=== PATIENT | female | born 1930 | race Caucasian/White ===

== ENCOUNTER 2016-10-18 00:36 | Inpatient (IN) | payer OTHER ==
[2016-10-18] VITALS (26 sets, daily range): BP systolic 91–144; BP diastolic 48–95; PULSE 72–96; TEMP 36.5–37; O2SAT 95–100; Ht 157.5 cm; Wt 74.3 kg
[~2016-10-18] VITALS: Ht 157.5 cm; Wt 74.3 kg
[~2016-10-18 00:36] MED LIST: ACET-1311 PO; CALCTAB65 PO; FSMD/70 PO; FURO-85 PO; HYDR12.56 PO; LISI10TA PO; MELA3TAB PO; METO25TA56 PO; POTA10CA28 PO; TRAM-10 PO; WARF5TAB90 PO
--- NOTE | 2016-10-18 01:15 | EMERGENCY ROOM VISIT NOTE ---
History Report prepared by Nicolasibrowena: Sharif Hicks Under the Supervision of: Dr. Irina Acosta D.O. First contact with patient: 00:57 Chief Complaint: FALL Stated Complaint: FALL/SHORT OF BREATH/LEG PAIN History of Present Illness The patient is an 86 year old female who presents to the Emergency Room with complaints of an acute fall that occurred last night. As per daughter, the patient fell out of her bed. She did not sustain any injuries from the fall to her daughter's knowledge. The patient has had worsening generalized weakness for the past week to the point that she has needed a walker. The patient's daughter noticed yesterday that her right leg is hard and swollen. The patient has a history of knee surgery. The patient has been sleeping more than usual. Per daughter's translation, the patient denies any pain. The patient ate multiple meals today. Source of History: patient, family (daughter) Onset: last night Position: other (global) Quality: other (fall) Timing: other (acute) Review of Systems See HPI for pertinent positives & negatives. A total of 10 systems reviewed and were otherwise negative. Past Medical & Surgical Medical Problems: (1) Anemia (2) Anticoagulated by anticoagulation treatment (3) Fibrillation, atrial (4) Hypertension Surgical Problems: (1) Total knee replacement status Family History Patient reports no known family medical history. Social History Smoking Status: Never Smoker Drug Use: none Marital Status: Housing Status: lives with family Occupation Status: retired Current/Historical Medications Scheduled Furosemide (Lasix), 20 MG PO DAILY Lisinopril (Lisinopril), 20 MG PO DAILY Metoprolol Succ (Toprol Xl) (Toprol-Xl), 12.5 MG PO DAILY Potassium Chloride (Klor-Con Sprinkle), 10 MEQ PO DAILY Warfarin Sodium (Coumadin), 1 TAB PO 4XWK Warfarin Sodium (Coumadin), 2 TABS PO 3XWK Allergies Coded Allergies: No Known Allergies (Verified , 10/18/16) Physical Exam Vital Signs Date Time Temp Pulse Resp B/P Pulse Ox O2 Delivery O2 Flow Rate FiO2 10/18/16 02:57 87 18 98/51 100 Room Air 10/18/16 00:54 94 10/18/16 00:51 36.7 99 18 102/55 98 Room Air Physical Exam General: Appears extremely lethargic. HEENT: Head - normocephalic and atraumatic Pupils are equal, round, and reactive to light. Extraocular eye muscles are intact, and sclera are anicteric. Nose - moist nasal mucosa without discharge. Mouth - moist buccal mucosa. Oropharynx is nonerythematous and there is no tonsillar exudate or edema noted. Neck: Supple; no JVD, nuchal rigidity, cervical lymphadenopathy, or auscultated bruits. Heart: Regular rate and rhythm. There is a normal S1 and S2 with no murmurs, clicks, or gallops appreciated. Lungs: Clear to auscultation bilaterally with no wheezes, rales, or rhonchi. Abdomen: Soft, completely nontender, nondistended, with good bowel sounds. There are no palpable pulsatile masses or hepatosplenomegaly. There is no guarding, rigidity, or rebound noted. Extremities:Significant edema of the right leg. Popliteal fossa seems tender to palpation. There is moderate edema and possible hematoma noted at the proximal thigh and about the buttocks. Skin: warm and dry with good turgor and no rashes. Neuro: Moves all four extremities, appears nonfocal. Will eventually follow commands. Medical Decision & Procedures ER Provider Diagnostic Interpretation: Radiology results as stated below per my review and the radiologist's interpretation: US VENOUS RIGHT LOWER EXTREMITY: No sonographic evidence of DVT. Radiologist: Jairo Claire MD. CT HEAD: No intracranial hemorrhage or mass effect. Chronic appearing/senescent changes. Radiologist: Jairo Claire MD. CT scan of the abdomen/pelvis: Pending Laboratory Results 10/18/16 01:28 Red Blood Count 2.08, Mean Corpuscular Volume 66.8, Mean Corpuscular Hemoglobin 21.6, Mean Corpuscular Hemoglobin Concent 32.4, Mean Platelet Volume 7.7, Neutrophils (%) (Auto) 83.2, Lymphocytes (%) (Auto) 4.5, Monocytes (%) (Auto) 9.6, Eosinophils (%) (Auto) 1.9, Basophils (%) (Auto) 0.4, Neutrophils # (Auto) 8.72, Lymphocytes # (Auto) 0.47, Monocytes # (Auto) 1.01, Eosinophils # (Auto) 0.20, Basophils # (Auto) 0.04 Test 10/18/16 01:28 White Blood Count 10.48 K/uL (4.8-10.8) Red Blood Count 2.08 M/uL (4.2-5.4) Hemoglobin 4.5 g/dL (12.0-16.0) Hematocrit 13.9 % (37-47) Mean Corpuscular Volume 66.8 fL (80-100) Mean Corpuscular Hemoglobin 21.6 pg (25-34) Mean Corpuscular Hemoglobin Concent 32.4 g/dl (32-36) Platelet Count 267 K/uL (130-400) Mean Platelet Volume 7.7 fL (7.4-10.4) Neutrophils (%) (Auto) 83.2 % Lymphocytes (%) (Auto) 4.5 % Monocytes (%) (Auto) 9.6 % Eosinophils (%) (Auto) 1.9 % Basophils (%) (Auto) 0.4 % Neutrophils # (Auto) 8.72 K/uL (1.4-6.5) Lymphocytes # (Auto) 0.47 K/uL (1.2-3.4) Monocytes # (Auto) 1.01 K/uL (0.11-0.59) Eosinophils # (Auto) 0.20 K/uL (0-0.5) Basophils # (Auto) 0.04 K/uL (0-0.2) RDW Standard Deviation 47.8 fL (36.4-46.3) RDW Coefficient of Variation 19.7 % (11.5-14.5) Immature Granulocyte % (Auto) 0.4 % Immature Granulocyte # (Auto) 0.04 K/uL (0.00-0.02) Nucleated RBC Absolute Count (auto) 0.02 K/uL (0-0) Nucleated Red Blood Cells % 0.2 % Polychromasia 1+ Microcytosis PRESENT Tear Drop Cells 1+ Ovalocytes 1+ Activated Partial Thromboplast Time 87.1 SECONDS (21.0-31.0) Partial Thromboplastin Ratio 3.4 Iron Level 26 mcg/dl (35-150) Total Iron Binding Capacity 290 mcg/dl (250-450) Ferritin 64.7 ng/ml (8.0-388.0) Total Bilirubin 2.1 mg/dl (0.2-1) Aspartate Amino Transf (AST/SGOT) 20 U/L (15-37) Alanine Aminotransferase (ALT/SGPT) 15 U/L (12-78) Alkaline Phosphatase 66 U/L (45-117) Total Protein 5.4 gm/dl (6.4-8.2) Albumin 2.5 gm/dl (3.4-5.0) Globulin 2.9 gm/dl (2.5-4.0) Albumin/Globulin Ratio 0.9 (0.9-2) Thyroid Stimulating Hormone (TSH) 0.866 uIu/ml (0.300-4.500) Date/Time Source Procedure Growth Status 10/18/16 00:00 Nasal MRSA DNA Surveillance Screen - Final Specimen Negative for MRSA by DNA Probe Complete Laboratory results per my review. Medications Administered Medications (Trade) Dose Ordered Sig/Brennon Route Start Time Stop Time Status Last Admin Dose Admin Phytonadione (Mephyton Tab) 5 mg NOW STAT PO 10/18/16 03:16 10/18/16 03:19 DC 10/18/16 03:24 5 MG Procedure Medications administered include Mephyton PO. ECG Indication: other (fall) Rate (beats per minute): 98 Rhythm: atrial fibrillation Findings: no acute ischemic change, no ectopy ED Course 0100: Past medical records reviewed. The patient was evaluated in room B9. A complete history and physical exam was performed. An IV lock was initiated and labs are drawn as above. A twelve-lead EKG was obtained. The patient went for ultrasound of the right lower extremity to rule out DVT. 0250: The patient's daughter stated that she was told her Coumadin levels were extraordinarily high when she saw her doctor. She withheld Coumadin for one day but continued giving the patient Coumadin yesterday. 0303: D[facility] the [facility] The patient will be evaluated. She recommended CT scan of the abdomen/pelvis to further evaluate this probable hematoma of the buttocks and upper thigh. 0316: Admitting doctor ordered Mephyton 5 mg PO. 0330: The patient is hemodynamically stable. Blood consent was signed. Medical Decision The patient is a 86 year old female who presents to the ED s/p fall. Differential diagnosis includes DVT, lower extremity hematoma, stroke, dehydration, intracranial hemorrhage. Laboratory interpretation: normal white count, hemoglobin 4.5, hematocrit 13.9, platelet count 267, BUN 35, creatinine 1.7, glucose 118, total bilirubin 2.1, troponin 0.05, normal TSH, INR greater than 8.0. This is an 86-year-old female patient is become increasingly lethargic and weak over the past couple of days. She was noted have severe anemia with hemoglobin of 4.5. The patient has extreme pain in the right lower extremity with what seems to be hematoma. She has a supratherapeutic INR. The patient was typed and crossed for packed red blood cells. The patient will go for CT scan of the abdomen/ pelvis. Consults Time Called: 254 Consulting Physician: 302: [facility] The [facility]ien Returned Call: [phone]: [facility] The patient will be evaluated. Impression Primary Impression: Severe anemia Additional Impression: Supratherapeutic INR Critical Care I have personally spent greater than 60 minutes of critical care time in the direct management of this patient. This includes bedside care, interpretation of diagnostic studies, and testing, discussion with consultants, patient, and family members, and other required patient management activities. This 60 minutes is in excess of all separately billable procedures. Scribe Attestation The scribe's documentation has been prepared under my direction and personally reviewed by me in its entirety. I confirm that the note above accurately reflects all work, treatment, procedures, and medical decision making performed by me. Departure Information Dispostion Being Evaluated By Hospitalist Referrals Hannah Pascal M.D. (PCP) Patient Instructions [facility] Problem Qualifiers
[2016-10-18] MEDS ORDERED: LSN20 PO (01:38)
[2016-10-18] MEDS ORDERED: METO25TA3 PO (01:38)
[2016-10-18] MEDS ORDERED: WARF5TAB90 PO ×2 (01:40)
[2016-10-18] MEDS ORDERED: POTA1CAP53 PO (01:40)
[2016-10-18 01:59] LABS: BUN/CREATININE RATIO 20.5 (10-20); CALCIUM 7.7 mg/dl (8.5-10.1); CREATININE 1.7 mg/dl (0.60-1.20); POTASSIUM 4.1 mmol/L (3.5-5.1)
[2016-10-18 02:17] LABS: HEMATOCRIT 13.9 % (37-47); MEAN CELL VOLUME 66.8 fL (80-100); MEAN CORPUSCULAR HEMOGLOBIN 21.6 pg (25-34); MEAN CORPUSCULAR HGB CONC 32.4 g/dl (32-36); MEAN PLATELET VOLUME 7.7 fL (7.4-10.4); PLATELET COUNT 267 K/uL (130-400); RED BLOOD COUNT 2.08 M/uL (4.2-5.4); WHITE BLOOD COUNT 10.48 K/uL (4.8-10.8)
[2016-10-18 02:19] LABS: BASO % 0.4 %; BASO ABS # 0.04 K/uL (0-0.2); COMPLETE YES; EOS % 1.9 %; IG% 0.4 %; LYMPH % 4.5 %; LYMPH ABS # 0.47 K/uL (1.2-3.4); MICROCYTOSIS PRESENT; MONO % 9.6 %; NEUT % 83.2 %; OVALOCYTES 1+; POLYCHROMASIA 1+; TEAR DROP CELLS 1+
[2016-10-18 02:25] LABS: ALB/GLOB RATIO 0.9 (0.9-2); CKMB/CK RATIO 1.3 (0-3.0); THYROID STIMULATING HORMONE 0.866 uIu/ml (0.300-4.500)
[2016-10-18 02:58] LABS: PARTIAL THROMBOPLASTIN RATIO 3.4; PROTHROMBIN TIME (PATIENT) > 100.0 SECONDS (9.0-12.0)
[2016-10-18 03:03] LABS: INR > 8.0 (0.9-1.1)
[2016-10-18] MEDS ORDERED: PHYTONADIONE 5 MG TAB PO STA (03:16)
--- NOTE | 2016-10-18 03:28 | History and Physical ---
History & Physical Date & Time of Service: Oct 18, 2016 at 03:27 Chief Complaint: Fall/Short Of Breath/Leg Pain Primary Care Physician: Hannah Pascal M.D. History of Present Illness Source: family (daughter ) 86 yo F [place]ymra[place] speaking hx of chronic Afib on Coumadin brought to ED by daughter as pt was very weak , having SOB with minimum activity , palpitation , chest heaviness sustained fall at home in the ED HB found to be ~4 , with GALA INR elevated > 8 history obtained form Daughter -as pt does not speak [place]an per daughter -pt was more confused , weak in past few days , fell day before yesterday while trying to go to bathroom hit her rt leg to side table complaining of pain on rt thigh area pt's INR has been elevated , was seen by [facility] , asked to hold Coumadin dose no report of dark stool per daughter last night -as pt was trying to go to bathroom , could not bear wt on rt leg due to severe pain has complaining of chest heaviness/palpitation , dizzy spell CT head w/out contrast was negative for intracranial hge pt is ordered 2 units of PRBC to be transfused in ED will need serial H&H to be checked to keep Hb > 8 ordered for stool heme occult Past Medical/Surgical History Medical Problems: (1) Anticoagulated by anticoagulation treatment Status: Chronic (2) Fibrillation, atrial Status: Chronic (3) Hypertension Status: Chronic Surgical Problems: (1) Total knee replacement status Status: Resolved Family History Patient reports no known family medical history. Social History Smoking Status: Never Smoker Drug Use: none Marital Status: Occupational Status: retired Immunizations History of Influenza Vaccine: Yes Influenza Vaccine Date: May 30, 2013 History of Tetanus Vaccine?: Yes Tetanus Immunization Date: May 30, 2010 History of Pneumococcal: No Pneumococcal Date: Sep 22, 2007 History of Hepatitis B Vaccine: No Multi-Drug Resistant Organisms History of MDRO: No Allergies Coded Allergies: No Known Allergies (Verified , 10/18/16) Home Medications Scheduled Furosemide (Lasix), 20 MG PO DAILY Lisinopril (Lisinopril), 20 MG PO DAILY Metoprolol Succ (Toprol Xl) (Toprol-Xl), 12.5 MG PO DAILY Potassium Chloride (Klor-Con Sprinkle), 10 MEQ PO DAILY Warfarin Sodium (Coumadin), 1 TAB PO 4XWK Warfarin Sodium (Coumadin), 2 TABS PO 3XWK Review of Systems Constitutional: + fatigue, + weakness Respiratory: + dyspnea at rest, + dyspnea on exertion, + shortness of breath Cardiovascular: + chest pain, + palpitations Musculoskeletal: + calf pain, + joint pain, + muscle pain, + problem reported ( rt sided inner thigh pain after fall ) Neurologic: + balance problems, + numbness/tingling, + problem reported ( confusion ), + vertigo, + weakness Psychiatric: + anxiety Physical Exam Vital Signs Date Time Temp Pulse Resp B/P Pulse Ox O2 Delivery O2 Flow Rate FiO2 10/18/16 02:57 87 18 98/51 100 Room Air 10/18/16 00:54 94 10/18/16 00:51 36.7 99 18 102/55 98 Room Air General Appearance: no apparent distress Head: normocephalic Eyes: sclerae normal Neck: no JVD Respiratory/Chest: chest non-tender, lungs clear, normal breath sounds, no respiratory distress Cardiovascular: + irregularly irregular Abdomen/GI: non tender, soft Extremities/Musculoskelatal: + pertinent finding (pain and tendereness / swelling on rt inner thigh , no bruise or ecchymosis noted ) Neurologic/Psych: + pertinent finding (confusion ) Diagnostics Laboratory Results Results Past 24 Hours Test 10/18/16 01:28 10/18/16 03:16 Range/Units White Blood Count 10.48 4.8-10.8 K/uL Red Blood Count 2.08 4.2-5.4 M/uL Hemoglobin 4.5 12.0-16.0 g/dL Hematocrit 13.9 37-47 % Mean Corpuscular Volume 66.8 80-100 fL Mean Corpuscular Hemoglobin 21.6 25-34 pg Mean Corpuscular Hemoglobin Concent 32.4 32-36 g/dl Platelet Count 267 130-400 K/uL Mean Platelet Volume 7.7 7.4-10.4 fL Neutrophils (%) (Auto) 83.2 % Lymphocytes (%) (Auto) 4.5 % Monocytes (%) (Auto) 9.6 % Eosinophils (%) (Auto) 1.9 % Basophils (%) (Auto) 0.4 % Neutrophils # (Auto) 8.72 1.4-6.5 K/uL Lymphocytes # (Auto) 0.47 1.2-3.4 K/uL Monocytes # (Auto) 1.01 0.11-0.59 K/uL Eosinophils # (Auto) 0.20 0-0.5 K/uL Basophils # (Auto) 0.04 0-0.2 K/uL RDW Standard Deviation 47.8 36.4-46.3 fL RDW Coefficient of Variation 19.7 11.5-14.5 % Immature Granulocyte % (Auto) 0.4 % Immature Granulocyte # (Auto) 0.04 0.00-0.02 K/uL Nucleated RBC Absolute Count (auto) 0.02 0-0 K/uL Nucleated Red Blood Cells % 0.2 % Polychromasia 1+ Microcytosis PRESENT Tear Drop Cells 1+ Ovalocytes 1+ Prothrombin Time > 100.0 9.0-12.0 SECONDS Prothromb Time International Ratio > 8.0 0.9-1.1 Activated Partial Thromboplast Time 87.1 21.0-31.0 SECONDS Partial Thromboplastin Ratio 3.4 Sodium Level 136 136-145 mmol/L Potassium Level 4.1 3.5-5.1 mmol/L Chloride Level 102 98-107 mmol/L Carbon Dioxide Level 25 21-32 mmol/L Anion Gap 9.0 3-11 mmol/L Blood Urea Nitrogen 35 7-18 mg/dl Creatinine 1.70 0.60-1.20 mg/dl Est Creatinine Clear Calc Drug Dose 21.6 ml/min Estimated GFR () 30.7 Estimated GFR (Non- 26.5 BUN/Creatinine Ratio 20.5 10-20 Random Glucose 118 70-99 mg/dl Calcium Level 7.7 8.5-10.1 mg/dl Total Bilirubin 2.1 0.2-1 mg/dl Aspartate Amino Transf (AST/SGOT) 20 15-37 U/L Alanine Aminotransferase (ALT/SGPT) 15 12-78 U/L Alkaline Phosphatase 66 45-117 U/L Total Creatine Kinase 157 26-192 U/L Creatine Kinase MB 2.0 0.5-3.6 ng/ml Creatine Kinase MB Ratio 1.3 0-3.0 Troponin I 0.059 0-0.045 ng/ml Total Protein 5.4 6.4-8.2 gm/dl Albumin 2.5 3.4-5.0 gm/dl Globulin 2.9 2.5-4.0 gm/dl Albumin/Globulin Ratio 0.9 0.9-2 Thyroid Stimulating Hormone (TSH) 0.866 0.300-4.500 uIu/ml Impression Assessment and Plan SEVERE /SYMPTOMATIC ANEMIA : presented with SOB /LOERA , palpitation , generalized weakness HB was in 4.5 , elevated INR > 8 unable to obtain any history form the pt due to language barrier ( pt speaks [place]ym[place] only , does not understand Bel[place]an ) -daughter presented at bedside provided information has been feeling weak and lightheaded for past few days no report of dark stool sustained a fall last night while trying to go to bathroom as per daughter no bleeding episode noted ordered for 2 units of PRBC transfusion in ED follow H&H q 8 hrs will need PRBC transfusion to keep Hb > 8 pt is ordered to be NPO IV PPI GI eval requested to assess for possible GI bleed CT abdomen /pelvis ordered with out contrast for internal bleed GALA : due to above ordered of IV fluid will need PRBC transfusion to correct anemia follow PRP avoid nephrotoxins CHRONIC AFIB remains rate controlled c cont beta meghan Coumadin on hold due to elevated INR COAGULOPATHY : INR > 8 Coumadin discontinued PO vit K 5 mg ordered -severe symptomatic anemia /increase chance of active b leed follow daily coags SOB /LOERA : due to anemia correction of anemia as above monitor clinically MILD ELEVATION OF TROPONIN : possible due to GALA vs demand ischemia due to severe anemia serial cardiac markers ordered no Aspirin due to anemia resting ECHO Cardiology eval requested FULL CODE DVT PROPHYLAXIS scd and teds avoid anticoagulation due to anemia DISPOSITION : lives at home , daughter lives close by provides support PT/OT eval requested prior to discharge -multiple falls at home social service consulted for discharge planning medicine follow up with Dr Pascal Level of Care Telemetry Resuscitation Status FULL RESUSCITATION VTE Prophylaxis VTE Risk Assessment Done? Y/N: Yes Risk Level: Moderate Given or contraindicated: T.E.D. Stockings, SCD's
[2016-10-18] MEDS ORDERED: ONDANSETRON INJ 2 MG/ML 2 ML VIAL IV PRN (03:30)
[2016-10-18] MEDS ORDERED: NITROGLYCERIN 0.4 MG SL PER TAB CHARGE SL PRN (03:30)
[2016-10-18 03:48] LABS: FERRITIN 64.7 ng/ml (8.0-388.0)
[2016-10-18] MEDS ORDERED: PANTOprazole INJ 80 MG in DEXTROSE 5% 100ML IV STA (06:23)
[2016-10-18] MEDS ORDERED: PANTOprazole INJ 40 MG in DEXTROSE 5% 100ML IV SCH (06:30)
[2016-10-18] MEDS: SODIUM CHLORIDE 0.9% 1000ML 1,000 ML IV SCH ×2 (07:35→15:32)
--- NOTE | 2016-10-18 07:38 | DIAGNOSTIC IMAGING REPORT ---
ULTRASOUND RIGHT VENOUS DOPP LOWER EXT UNILAT CLINICAL HISTORY: Right leg pain. COMPARISON STUDY: No previous studies for comparison. FINDINGS: Real-time and color flow Doppler imaging were performed. Flow was seen within the femoral, popliteal and calf veins with no intraluminal thrombus demonstrated. The saphenous vein is patent. IMPRESSION: No evidence of right lower extremity DVT. Electronically signed by: Lee Payne M.D. 10/18/2016 7:36 AM Dictated Date/Time: 10/18/2016 7:36 AM
[2016-10-18] MEDS: METOPROLOL SUCC 25MG EXT REL TAB PO SCH (07:42)
--- NOTE | 2016-10-18 07:50 | DIAGNOSTIC IMAGING REPORT ---
CT HEAD WITHOUT CONTRAST (CT) CLINICAL HISTORY: Head trauma. Acute change in mental status. COMPARISON STUDY: 05/20/2013 TECHNIQUE: Axial CT of the brain is performed from the vertex to the skull base. IV contrast was not administered for this examination. CT DOSE: 537.48 mGy.cm FINDINGS: No intra or extra-axial mass lesions are visualized. There is no CT evidence of acute cortical infarction. There is no evidence of midline shift. There is no acute hemorrhage. No calvarial fractures are visualized. There are patchy white matter hypodensities likely on a small vessel basis. 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 There is no evidence of pathologic ventricular dilatation. There is no evidence of acute sinusitis IMPRESSION: No acute intracranial findings Electronically signed by: Lee Payne M.D. 10/18/2016 7:48 AM Dictated Date/Time: 10/18/2016 7:48 AM
--- NOTE | 2016-10-18 08:31 | DIAGNOSTIC IMAGING REPORT ---
CT SCAN OF THE ABDOMEN AND PELVIS WITHOUT CONTRAST CLINICAL HISTORY: Unexplained blood loss. Evaluate for occult hemorrhage COMPARISON STUDY: No previous studies for comparison. TECHNIQUE: CT scan of the abdomen and pelvis was performed from the lung bases to the proximal femurs. Images are reviewed in the axial, sagittal, and coronal planes. IV contrast was not administered for this examination. CT DOSE: 498.18 mGy.cm FINDINGS: Lower chest: The heart is enlarged. There are small bilateral pleural effusions. There is mild basilar atelectasis. Liver: The unenhanced liver is normal in size, contour, and attenuation. There is no intrahepatic biliary ductal dilatation. Gallbladder: The gallbladder is distended and contains a large calculus. Spleen: Normal in size and attenuation. Pancreas: Unremarkable. Adrenal glands: Unremarkable. Kidneys: There is a 13 mm hyperdense right renal cyst. There are hyperdense foci within the superior aspect of the right renal sinus. Diagnostic considerations include a hyperdense cyst, renal pelvic mass, or hemorrhage within a dilated upper pole collecting system. A dedicated renal CT scan would be of benefit in follow-up. Bowel: There are no transition zones indicate bowel obstruction. The appendix appears normal. There is colonic diverticulosis. There are no acute peridiverticular inflammatory changes. Peritoneum: There is no intraperitoneal free air or abdominal ascites. Vasculature: The abdominal aorta is normal in course and caliber. Adenopathy: None. Pelvic viscera: The bladder, and pelvic viscera are unremarkable. Skeletal structures: There is mild subcutaneous edema, most pronounced on the right. There is asymmetry in the right hip musculature, and several hematomas are suspected. IMPRESSION: 1. Suspected hematomas in the region of the right hip and gluteal musculature 2. No evidence of bowel obstruction. No evidence of free air 3. Normal appendix. Diverticulosis. No evidence of acute diverticulitis 4. Cholelithiasis. Distended gallbladder 5. Hyperdense foci within the superior aspect of the right renal sinus. Diagnostic considerations include a hyperdense cyst, renal pelvic mass, or hemorrhage within a dilated upper pole collecting system. A dedicated renal CT scan would be of benefit in follow-up 6. Small bilateral pleural effusions Electronically signed by: Lee Payne M.D. 10/18/2016 8:29 AM Dictated Date/Time: 10/18/2016 8:19 AM
[2016-10-18 08:54] LABS: PROTHROMBIN TIME (PATIENT) 99.6 SECONDS (9.0-12.0)
[2016-10-18 08:58] LABS: INR > 8.0 (0.9-1.1)
[2016-10-18 09:09] LABS: HEMATOCRIT 20.1 % (37-47)
[2016-10-18 09:11] LABS: CHOLESTEROL/HDL RATIO 2.9
[2016-10-18] MEDS ORDERED: PHYTONADIONE INJ 5 MG in SODIUM CHLORIDE 0.9% 50ML 50 ML IV ONE (09:45)
--- NOTE | 2016-10-18 10:10 | CARDIOLOGY CONSULTATION ---
DATE OF CONSULTATION: 10/18/2016 DATE OF CONSULTATION: 10/18/2016. PRIMARY CARE PHYSICIAN: Dr. Hannah Pascal. REFERRAL DIAGNOSIS: Anemia, elevated troponin, chronic atrial fibrillation. REFERRING PHYSICIAN: Dr. Greene. HISTORY OF PRESENT ILLNESS: The patient is an 86-year-old female, Icelandic speaking I examined in the intensive care unit. She is accompanied by her daughter was able to interpret for patient. History is notable for presentation with marked weakness, leg pain and discomfort on the right, slumping fall due to weakness and confusion. She presented to the Emergency Room where the patient was found to have significant anemia, hemoglobin 4.5 and elevated INR. PAST MEDICAL HISTORY: Notable for chronic atrial fibrillation on chronic anticoagulation, history of documented microcytic anemia dating back to 2014, previously on iron supplement, history of hypertension. The patient this morning feels better than on admission after 2 unit transfusion. Symptoms of shortness of breath and fatigue are improved. The patient denies distinct chest pain or discomfort. Notes no tachypalpitations. Notes no overt evidence of bleeding, dark black stools, blood in the stools, blood in the urine. Appetite has been fairly good. She is assisted at home by daughters with ambulation with notable decline in recent functional capacity. No other complaints are observed. ALLERGIES: None. MEDICATIONS: Prior to hospitalization were furosemide 20 mg p.o. daily, lisinopril 20 mg p.o. daily, Toprol-XL 12.5 grams p.o. every day, potassium chloride 10 mEq p.o. every day, warfarin 5 mg 4 days per week, 10 mg 2 days per week. PAST SURGICAL HISTORY: Notable for prior knee arthroscopic surgery. FAMILY HISTORY: Noncontributory. SOCIAL HISTORY: The patient resides in [place] with daughter. She is a nonsmoker, nondrinker. PHYSICAL EXAMINATION: GENERAL: The patient is a thin, age appropriate female with language barrier. The patient does communicate well with her daughter. VITAL SIGNS: Heart rate is 80, blood pressures in 114/57. HEAD, EYES, EARS, NOSE, AND THROAT EXAMINATION: Normocephalic, atraumatic. Nares without discharge. Throat was clear. NECK: Thin. There is no jugular venous distention at 30 degrees. LUNGS: Reveal generally clear air nguyen with minimal decreased breath sounds at bases. CARDIOVASCULAR EXAMINATION: Irregular, irregular with a less than grade 1/6 systolic murmur. There is no diastolic murmur. PMI is nondisplaced. ABDOMEN: Soft with minimal distention. EXTREMITIES: Without cyanosis or clubbing. There is chronically indurated changes of the lower extremities with a healed chronic stasis wounds present. Pulses 1/4 dorsalis pedis and posterior tibialis. DATA: EKG on presentation revealed atrial fibrillation with low voltage QRS, poor R-wave progression across the anterior precordial leads, nonspecific ST segment changes. LABORATORY STUDIES: On presentation, white cell count was 10.4, hemoglobin was 14.5, MCV was 66.8. After 2 units transfusion hemoglobin this morning 6.4, iron level is 26. Sodium is 136, potassium is 4.1, chloride is 102, bicarbonate is 25, BUN is 35, creatinine is 1.7. Lipids reveal a cholesterol 81, LDL 35, HDL 28, TSH was 0.866. Echocardiogram performed in 2012 demonstrated by dobutamine stress no evidence of ischemia as well as preserved LV function and no significant valvular pathology. IMPRESSION: An 86-year-old female presents with symptomatic profound anemia, hemoglobin of 4.5. Troponins are minimally elevated on initial presentation likely reflecting patient's demand in association with profound anemia. EKG reveals no acute ST segment changes. PLAN: Echocardiogram has been ordered. Will review as available though ultimate findings appear to be a manifestation of patient's marked iron deficiency anemia. Further evaluation and treatment of anemia will be ongoing. Blood loss appears to be very subacute. Good tolerance of marked anemia and would gradually transfuse. Hold anticoagulation for time being, continue current dosing of metoprolol. Will follow along as hospital course progresses. MTDD
[2016-10-18 11:03] LABS: BLOOD UREA NITROGEN 34 mg/dl (7-18); BUN/CREATININE RATIO 22.4 (10-20); CALCIUM 7.7 mg/dl (8.5-10.1); CHLORIDE 104 mmol/L (98-107); GLUCOSE 104 mg/dl (70-99); POTASSIUM 4.2 mmol/L (3.5-5.1); SODIUM 137 mmol/L (136-145)
[2016-10-18 11:08] LABS: CKMB/CK RATIO 1.5 (0-3.0)
--- NOTE | 2016-10-18 12:31 | ECHOCARDIOGRAM REPORT ---
*NOTICE TO RECEIVING DEMOCRAT AGENCY This information is strictly Confidential and protected under [place] law. [place] law prohibits you from making any further disclosure of this information unless further disclosure is expressly permitted by the written consent of the person to whom it pertains or is authorized by law. A general authorization for the release of medical or other information is not sufficient for this purpose. Hospital accepts no responsibility if the information is made available to any other person, INCLUDING THE PATIENT. Interpretation Summary * Name: OLEGARIO ACOSTA Study Date: 10/18/2016 09:23 AM BP: 114/57 mmHg * [facility]1 HR: 78 * : 1930 (M/d/yyyy) Gender: Female Height: 62 in * Age: 86 yrs Ethnicity: CA Weight: 163 lb * Ordering Physician: Alejandra Greene * Referring Physician: Self, Referred * Performed By: Perri Lopez RDCS * * Reason For Study: AFIB * BSA: 1.8 m2 * History: AFIB * -- Conclusions -- * The left ventricle is normal in size. * There is moderate concentric left ventricular hypertrophy. * The left ventricular wall motion is normal. * Left ventricular systolic function is normal. * Ejection Fraction = 50-55%. * The left atrium is severely dilated. * Aortic valve sclerosis moderate, without significant aortic valvular stenosis. * There is moderate mitral regurgitation. * There is mild tricuspid regurgitation. * Right ventricular systolic pressure is elevated at 40-50mmHg. Procedure Details * A complete two-dimensional transthoracic echocardiogram was performed (2D, M-mode, Doppler and color flow Doppler). Left Ventricle * The left ventricle is normal in size. * There is moderate concentric left ventricular hypertrophy. * Ejection Fraction = 50-55%. * Left ventricular systolic function is normal. * The left ventricular wall motion is normal. Right Ventricle * The right ventricle is normal in size and function. Atria * The left atrium is severely dilated. * Right atrial size is normal. * No ASD detected; PFO is not assessed. Mitral Valve * The mitral valve is normal. * There is no mitral valve stenosis. * There is moderate mitral regurgitation. Tricuspid Valve * The tricuspid valve anatomy is normal. * There is no tricuspid stenosis. * There is mild tricuspid regurgitation. * Right ventricular systolic pressure is elevated at 40-50mmHg. Aortic Valve * The aortic valve is trileaflet. * Aortic valve sclerosis moderate, without significant aortic valvular stenosis. * No aortic regurgitation is present. Pulmonic Valve * The pulmonic valve is not well visualized. Great Vessels * The aortic root is normal size. Pericardium/Pleural * There is no pericardial effusion. Great Vessels * Dilated inferior vena cava with reduced collapsability with sniff indicates an elevated right atrial pressure of 15 mmHg MMode 2D Measurements and Calculations IVSd 1.7 cm IVSs 2.5 cm LVIDd 3.6 cm LVIDs 2.6 cm LVPWd 2.1 cm LVPWs 2.7 cm IVS/LVPW 0.81 FS 28.3 % EDV(Teich) 55.6 ml ESV(Teich) 24.7 ml EF(Teich) 55.6 % EDV(cubed) 47.9 ml ESV(cubed) 17.7 ml EF(cubed) 63.1 % % IVS thick 42.0 % % LVPW thick 25.7 % LV mass(C)d 311.8 grams LV mass(C)dI 177.9 grams/m\S\2 LV mass(C)s 373.3 grams LV mass(C)sI 213.0 grams/m\S\2 SV(Teich) 30.9 ml SI(Teich) 17.6 ml/m\S\2 SV(cubed) 30.3 ml SI(cubed) 17.3 ml/m\S\2 Ao root diam 3.0 cm Ao root area 7.1 cm\S\2 LA dimension 4.8 cm LA/Ao 1.6 LVAd ap4 27.0 cm\S\2 LVLd ap4 8.4 cm EDV(MOD-sp4) 74.5 ml EDV(sp4-el) 73.3 ml LVAs ap4 18.0 cm\S\2 LVLs ap4 7.6 cm ESV(MOD-sp4) 40.2 ml ESV(sp4-el) 36.2 ml EF(MOD-sp4) 46.0 % EF(sp4-el) 50.7 % LVAd ap2 27.0 cm\S\2 LVLd ap2 8.3 cm EDV(MOD-sp2) 76.7 ml EDV(sp2-el) 74.8 ml LVAs ap2 16.9 cm\S\2 LVLs ap2 6.5 cm ESV(MOD-sp2) 41.3 ml ESV(sp2-el) 37.5 ml EF(MOD-sp2) 46.1 % EF(sp2-el) 49.8 % LVLd %diff -2.10 % EDV(MOD-bp) 76.7 ml LVLs %diff -17.28 % ESV(MOD-bp) 42.7 ml EF(MOD-bp) 44.4 % SV(MOD-sp4) 34.3 ml SI(MOD-sp4) 19.6 ml/m\S\2 SV(MOD-sp2) 35.3 ml SI(MOD-sp2) 20.1 ml/m\S\2 SV(MOD-bp) 34.0 ml SI(MOD-bp) 19.4 ml/m\S\2 SV(sp4-el) 37.2 ml SI(sp4-el) 21.2 ml/m\S\2 SV(sp2-el) 37.3 ml SI(sp2-el) 21.3 ml/m\S\2 Doppler Measurements and Calculations MV E max julieta 136.7 cm/sec MV dec time 0.24 sec Ao V2 max 186.0 cm/sec Ao max PG 13.8 mmHg Ao max PG (full) 11.1 mmHg LV V1 max PG 2.7 mmHg LV V1 max 82.0 cm/sec TR max julieta 306.8 cm/sec
[2016-10-18 15:02] LABS: URINE APPEARANCE CLEAR (CLEAR); URINE BILIRUBIN NEG (NEG); URINE COLOR DK YELLOW; URINE EPITHELIAL CELL AUTO >30 /lpf (0-5); URINE NITRITE NEG (NEG); URINE SPECIFIC GRAVITY 1.013 (1.000-1.030); UROBILINOGEN POS (NEG)
[2016-10-18 15:20] LABS: MANUAL MICROSCOPIC REQUIRED? NO; REVIEW REQ? NO
--- NOTE | 2016-10-18 17:28 | Progress Note ---
Medicine Progress Note Date & Time of Visit: Oct 18, 2016 at 17:11. Subjective Patient seen and examined. Family present at bedside and updated. Patient currently denies any pain. Patient denies any hematemesis, melena or hematochezia. Objective Last 8 Hrs Date Time Temp Pulse Resp B/P Pulse Ox O2 Delivery O2 Flow Rate FiO2 10/18/16 16:00 Room Air 10/18/16 15:33 36.5 10/18/16 15:00 36.5 78 17 125/71 99 10/18/16 14:00 36.8 74 21 117/68 97 10/18/16 13:30 36.7 78 20 123/74 95 10/18/16 12:00 Room Air 10/18/16 12:00 36.6 76 20 116/62 99 10/18/16 12:00 74 17 101/65 98 Room Air 10/18/16 11:30 36.6 79 17 110/54 98 10/18/16 11:00 36.6 80 18 119/63 95 10/18/16 10:30 36.8 79 18 107/54 97 Room Air 10/18/16 10:00 78 19 108/63 98 Room Air Physical Exam: General-awake; alert; NAD Eyes-EOMI; no scleral icterus Neck-no stridor; trachea midline Lungs-CTA bilaterally; no wheezes/crackles Heart-irregularly irregular Abdomen-soft; NTND; nBS Extremities-large bruise/hematoma to right posterior buttock/thigh Neuro-no focal deficits Laboratory Results: Last 24 Hours Test 10/18/16 01:28 10/18/16 08:27 10/18/16 14:35 10/18/16 17:10 White Blood Count 10.48 K/uL Red Blood Count 2.08 M/uL Hemoglobin 4.5 g/dL 6.4 g/dL Hematocrit 13.9 % 20.1 % Mean Corpuscular Volume 66.8 fL Mean Corpuscular Hemoglobin 21.6 pg Mean Corpuscular Hemoglobin Concent 32.4 g/dl Platelet Count 267 K/uL Mean Platelet Volume 7.7 fL Neutrophils (%) (Auto) 83.2 % Lymphocytes (%) (Auto) 4.5 % Monocytes (%) (Auto) 9.6 % Eosinophils (%) (Auto) 1.9 % Basophils (%) (Auto) 0.4 % Neutrophils # (Auto) 8.72 K/uL Lymphocytes # (Auto) 0.47 K/uL Monocytes # (Auto) 1.01 K/uL Eosinophils # (Auto) 0.20 K/uL Basophils # (Auto) 0.04 K/uL RDW Standard Deviation 47.8 fL RDW Coefficient of Variation 19.7 % Immature Granulocyte % (Auto) 0.4 % Immature Granulocyte # (Auto) 0.04 K/uL Nucleated RBC Absolute Count (auto) 0.02 K/uL Nucleated Red Blood Cells % 0.2 % Polychromasia 1+ Microcytosis PRESENT Tear Drop Cells 1+ Ovalocytes 1+ Prothrombin Time > 100.0 SECONDS 99.6 SECONDS Prothromb Time International Ratio > 8.0 > 8.0 Activated Partial Thromboplast Time 87.1 SECONDS Partial Thromboplastin Ratio 3.4 Sodium Level 136 mmol/L 137 mmol/L Potassium Level 4.1 mmol/L 4.2 mmol/L Chloride Level 102 mmol/L 104 mmol/L Carbon Dioxide Level 25 mmol/L mmol/L Anion Gap 9.0 mmol/L 7.0 mmol/L Blood Urea Nitrogen 35 mg/dl 34 mg/dl Creatinine 1.70 mg/dl 1.50 mg/dl Est Creatinine Clear Calc Drug Dose 21.6 ml/min 24.1 ml/min Estimated GFR () 30.7 35.7 Estimated GFR (Non- 26.5 30.8 BUN/Creatinine Ratio 20.5 22.4 Random Glucose 118 mg/dl 104 mg/dl Calcium Level 7.7 mg/dl 7.7 mg/dl Iron Level 26 mcg/dl Total Iron Binding Capacity 290 mcg/dl Ferritin 64.7 ng/ml Total Bilirubin 2.1 mg/dl Aspartate Amino Transf (AST/SGOT) 20 U/L Alanine Aminotransferase (ALT/SGPT) 15 U/L Alkaline Phosphatase 66 U/L Total Creatine Kinase 157 U/L 127 U/L Creatine Kinase MB 2.0 ng/ml 1.9 ng/ml Creatine Kinase MB Ratio 1.3 1.5 Troponin I 0.059 ng/ml 0.049 ng/ml Total Protein 5.4 gm/dl Albumin 2.5 gm/dl Globulin 2.9 gm/dl Albumin/Globulin Ratio 0.9 Thyroid Stimulating Hormone (TSH) 0.866 uIu/ml Triglycerides Level 91 mg/dl Cholesterol Level 81 mg/dl HDL Cholesterol 28 mg/dl LDL Cholesterol, Calculated 35 mg/dl VLDL Cholesterol, Calculated 18 mg/dl Cholesterol/HDL Ratio 2.9 Urine Color DK YELLOW Urine Appearance CLEAR Urine pH 5.0 Urine Specific [place] 1.013 Urine Protein NEG Urine Glucose (UA) NEG Urine Ketones NEG Urine Occult Blood NEG Urine Nitrite NEG Urine Bilirubin NEG Urine Urobilinogen POS Urine Leukocyte Esterase MODERATE Urine WBC (Auto) 10-30 /hpf Urine RBC (Auto) 0-4 /hpf Urine Hyaline Casts (Auto) 1-5 /lpf Urine Epithelial Cells (Auto) >30 /lpf Urine Bacteria (Auto) NEG Date/Time Source Procedure Growth Status 10/18/16 00:00 Nasal MRSA DNA Surveillance Screen - Final Specimen Negative for MRSA by DNA Probe Complete Assessment & Plan Coumadin therapy related right hip/gluteal hematomas causing severe acute blood loss anemia treated with Vitamin K and PRBC's ACUTE BLOOD LOSS ANEMIA - Hgb was 4.5 on admission - 2/2 supra-therapeutic INR and traumatic RLE hematoma - transfused 4 units PRBC's - CT a/p with hematomas in region of right hip and gluteal musculature; hyperdense foci in right renal sinus (cyst vs mass vs hemorrhage); unable to do renal CT given GALA; d/w Radiology and given urinalysis negative for hematuria, ok to hold on further imaging at this time COAGULOPATHY - INR > 8 on admission - Coumadin discontinued - patient given PO vitamin K and IV vitamin K for reversal GALA - due to acute blood loss anemia - continue IVF's - transfused PRBC's - downtrending CHRONIC AFIB - cont beta meghan - Coumadin discontinued - d/w Cardiology permanent discontinuation given fall risk, and anemia requiring significant transfusion MILD ELEVATION OF TROPONIN : - likely demand in the setting of anemia - downtrending - TTE with pEF and no wall motion abnormalities FULL CODE DVT PROPHYLAXIS scd and teds avoid anticoagulation due to anemia DISPOSITION : PT/OT evaluations when medically stable as patient will require rehab upon discharge Consultants: Cardiology Procedures: CT a/p 1. Suspected hematomas in the region of the right hip and gluteal musculature 2. No evidence of bowel obstruction. No evidence of free air 3. Normal appendix. Diverticulosis. No evidence of acute diverticulitis 4. Cholelithiasis. Distended gallbladder 5. Hyperdense foci within the superior aspect of the right renal sinus. Diagnostic considerations include a hyperdense cyst, renal pelvic mass, or hemorrhage within a dilated upper pole collecting system. A dedicated renal CT scan would be of benefit in follow-up 6. Small bilateral pleural effusions TTE * The left ventricle is normal in size. * There is moderate concentric left ventricular hypertrophy. * The left ventricular wall motion is normal. * Left ventricular systolic function is normal. * Ejection Fraction = 50-55%. * The left atrium is severely dilated. * Aortic valve sclerosis moderate, without significant aortic valvular stenosis. * There is moderate mitral regurgitation. * There is mild tricuspid regurgitation. * Right ventricular systolic pressure is elevated at 40-50mmHg. RLE venous duplex No evidence of right lower extremity DVT. CT head No acute intracranial findings Current Inpatient Medications: Current Inpatient Medications Medications (Trade) Dose Ordered Sig/Brennon Route Start Time Stop Time Status Last Admin Dose Admin Sodium Chloride (Nss 1000ml) 1,000 ml @ 80 mls/hr [id number] IV 10/18/16 04:30 11/17/16 04:29 10/18/16 15:32 80 MLS/HR Ondansetron HCl (Zofran Inj) 4 mg Q6H PRN IV 10/18/16 03:30 11/17/16 03:29 Nitroglycerin (Nitrostat Tab) 0.4 mg UD PRN SL 10/18/16 03:30 11/17/16 03:29 Metoprolol Succinate (Toprol Xl Tab) 12.5 mg DAILY PO 10/18/16 09:00 11/17/16 08:59 10/18/16 07:42 12.5 MG
[2016-10-18 18:01] LABS: HEMATOCRIT 25.6 % (37-47)
[2016-10-18 18:15] LABS: INR 1.5 (0.9-1.1)
[2016-10-19] VITALS (8 sets, daily range): BP systolic 110–142; BP diastolic 69–81; PULSE 65–83; TEMP 36.4–36.8; O2SAT 95–98
[2016-10-19 06:26] LABS: HEMATOCRIT 24.8 % (37-47); MEAN CELL VOLUME 75.4 fL (80-100); MEAN CORPUSCULAR HEMOGLOBIN 25.5 pg (25-34); MEAN CORPUSCULAR HGB CONC 33.9 g/dl (32-36); MEAN PLATELET VOLUME 8.3 fL (7.4-10.4); PLATELET COUNT 245 K/uL (130-400); RED BLOOD COUNT 3.29 M/uL (4.2-5.4); WHITE BLOOD COUNT 7.32 K/uL (4.8-10.8)
[2016-10-19 06:38] LABS: INR 1.2 (0.9-1.1); PROTHROMBIN TIME (PATIENT) 12.7 SECONDS (9.0-12.0)
[2016-10-19 07:26] LABS: BUN/CREATININE RATIO 25.5 (10-20); CALCIUM 7.7 mg/dl (8.5-10.1); CREATININE 1.1 mg/dl (0.60-1.20); MAGNESIUM 2.2 mg/dl (1.8-2.4)
[2016-10-19] MEDS: METOPROLOL SUCC 25MG EXT REL TAB PO SCH (10:07)
--- NOTE | 2016-10-19 15:12 | Progress Note ---
Medicine Progress Note Date & Time of Visit: Oct 19, 2016 at 15:06. Subjective Patient seen and examined. Family present at bedside. Denies complaints. Nursing staff reports patient is independent with IADLs. Objective Last 8 Hrs Date Time Temp Pulse Resp B/P Pulse Ox O2 Delivery O2 Flow Rate FiO2 10/19/16 14:01 36.6 65 14 133/81 95 Room Air 10/19/16 12:23 36.8 67 20 96 10/19/16 12:21 Room Air 10/19/16 12:03 36.8 67 20 134/69 96 Room Air 10/19/16 08:27 Room Air 10/19/16 08:20 36.8 73 20 127/70 96 Room Air Physical Exam: General-awake; alert; NAD Eyes-EOMI; no scleral icterus Neck-no stridor; trachea midline Lungs-CTA bilaterally; no wheezes/crackles Heart-irregularly irregular Abdomen-soft; NTND; nBS Extremities-large bruise/hematoma to right posterior buttock/thigh Neuro-no focal deficits Laboratory Results: Last 24 Hours Test 10/18/16 17:52 10/19/16 06:15 Hemoglobin 8.8 g/dL 8.4 g/dL Hematocrit 25.6 % 24.8 % Prothrombin Time 16.0 SECONDS 12.7 SECONDS Prothromb Time International Ratio 1.5 1.2 White Blood Count 7.32 K/uL Red Blood Count 3.29 M/uL Mean Corpuscular Volume 75.4 fL Mean Corpuscular Hemoglobin 25.5 pg Mean Corpuscular Hemoglobin Concent 33.9 g/dl RDW Standard Deviation 62.1 fL RDW Coefficient of Variation 22.7 % Platelet Count 245 K/uL Mean Platelet Volume 8.3 fL Nucleated RBC Absolute Count (auto) 0.07 K/uL Nucleated Red Blood Cells % 1.0 % Sodium Level 139 mmol/L Potassium Level 4.0 mmol/L Chloride Level 108 mmol/L Carbon Dioxide Level 25 mmol/L Anion Gap 6.0 mmol/L Blood Urea Nitrogen 28 mg/dl Creatinine 1.10 mg/dl Est Creatinine Clear Calc Drug Dose 33.4 ml/min Estimated GFR () 51.9 Estimated GFR (Non- 44.8 BUN/Creatinine Ratio 25.5 Random Glucose 76 mg/dl Calcium Level 7.7 mg/dl Magnesium Level 2.2 mg/dl Assessment & Plan Coumadin therapy related right hip/gluteal hematomas causing severe acute blood loss anemia treated with Vitamin K and PRBC's ACUTE BLOOD LOSS ANEMIA - Hgb was 4.5 on admission - 2/2 supra-therapeutic INR and traumatic RLE hematoma - transfused 4 units PRBC's - CT a/p with hematomas in region of right hip and gluteal musculature; hyperdense foci in right renal sinus (cyst vs mass vs hemorrhage); will need renal CT COAGULOPATHY - INR > 8 on admission - Coumadin discontinued - patient given PO vitamin K and IV vitamin K with reversal GALA - due to acute blood loss anemia - received IVF's - transfused PRBC's - resolved CHRONIC AFIB - cont beta meghan - Coumadin discontinued given fall risk, and anemia requiring transfusion MILD ELEVATION OF TROPONIN : - likely demand in the setting of anemia - downtrended - TTE with pEF and no wall motion abnormalities FULL CODE DVT PROPHYLAXIS scd and teds avoid anticoagulation due to anemia DISPOSITION : PT/OT evaluations - rehab upon discharge administrative services manager consulted Consultants: Cardiology Procedures: CT a/p 1. Suspected hematomas in the region of the right hip and gluteal musculature 2. No evidence of bowel obstruction. No evidence of free air 3. Normal appendix. Diverticulosis. No evidence of acute diverticulitis 4. Cholelithiasis. Distended gallbladder 5. Hyperdense foci within the superior aspect of the right renal sinus. Diagnostic considerations include a hyperdense cyst, renal pelvic mass, or hemorrhage within a dilated upper pole collecting system. A dedicated renal CT scan would be of benefit in follow-up 6. Small bilateral pleural effusions TTE * The left ventricle is normal in size. * There is moderate concentric left ventricular hypertrophy. * The left ventricular wall motion is normal. * Left ventricular systolic function is normal. * Ejection Fraction = 50-55%. * The left atrium is severely dilated. * Aortic valve sclerosis moderate, without significant aortic valvular stenosis. * There is moderate mitral regurgitation. * There is mild tricuspid regurgitation. * Right ventricular systolic pressure is elevated at 40-50mmHg. RLE venous duplex No evidence of right lower extremity DVT. CT head No acute intracranial findings Current Inpatient Medications: Current Inpatient Medications Medications (Trade) Dose Ordered Sig/Brennon Route Start Time Stop Time Status Last Admin Dose Admin Ondansetron HCl (Zofran Inj) 4 mg Q6H PRN IV 4/8/17 03:30 11/17/16 03:29 Nitroglycerin (Nitrostat Tab) 0.4 mg UD PRN SL 10/18/16 03:30 11/17/16 03:29 Metoprolol Succinate (Toprol Xl Tab) 12.5 mg DAILY PO 10/18/16 09:00 11/17/16 08:59 10/19/16 10:07 12.5 MG
--- NOTE | 2016-10-19 17:36 | PROGRESS NOTE ---
DATE: 10/19/2016 CARDIOLOGY CONSULTATION FOLLOWUP NOTE The patient seen and examined. Chart, medications, telemetry reviewed. SUBJECTIVE: The patient feels improved. Denies any chest pains or worsening shortness of breath. OBJECTIVE: VITAL SIGNS: Heart rate 67, blood pressure is 134/69, O2 saturation is 96% on room air. NECK: Thin. There is no jugular venous distention. LUNGS: Clear at the bases. CARDIOVASCULAR: Irregularly irregular. ABDOMEN: Soft. EXTREMITIES: Without cyanosis or clubbing. There is no peripheral edema. LABORATORY DATA: Sodium is 139, potassium is 4.0, chloride is 108, bicarbonate is 25, BUN is 28, creatinine is 1.1. INR is 1.2, hemoglobin is 8.4. IMPRESSION: An 86-year-old female admitted with profound anemia, history of chronic atrial fibrillation, on anticoagulation with warfarin. RECOMMENDATIONS: Would continue to hold warfarin. Troponin elevation appears to be nonischemic origin, secondary to profound anemia only. EKG today demonstrates no acute changes. Echocardiogram done on admission demonstrated no wall motion abnormalities. Plan as noted above. No adjustments made in medical therapies.
[2016-10-20] VITALS: O2SAT 97
[2016-10-20 07:42] VITALS: BP 157/80; PULSE 88; TEMP 36.6; O2SAT 96
[2016-10-20] MEDS: METOPROLOL SUCC 25MG EXT REL TAB PO SCH (07:50)
[2016-10-20 08:38] LABS: MEAN CELL VOLUME 77.6 fL (80-100); MEAN CORPUSCULAR HEMOGLOBIN 25.6 pg (25-34); MEAN PLATELET VOLUME 8.3 fL (7.4-10.4); PLATELET COUNT 288 K/uL (130-400); RED BLOOD COUNT 3.48 M/uL (4.2-5.4); WHITE BLOOD COUNT 6.34 K/uL (4.8-10.8)
[2016-10-20 08:47] LABS: INR 1.3 (0.9-1.1); PROTHROMBIN TIME (PATIENT) 14.6 SECONDS (9.0-12.0)
[2016-10-20 09:03] LABS: BUN/CREATININE RATIO 22.4 (10-20); CALCIUM 7.9 mg/dl (8.5-10.1); CREATININE 0.94 mg/dl (0.60-1.20); MAGNESIUM 2.2 mg/dl (1.8-2.4); POTASSIUM 3.8 mmol/L (3.5-5.1)
[2016-10-20 16:14] VITALS: BP 150/73; PULSE 83; TEMP 36.7; O2SAT 97
--- NOTE | 2016-10-20 20:13 | Progress Note ---
Medicine Progress Note Date & Time of Visit: Oct 20, 2016 at 20:11. Subjective Patient seen and examined with the aid of the refinery operator helper cracking unit translating. Minimal pain in right leg. Objective Last 8 Hrs Date Time Temp Pulse Resp B/P Pulse Ox O2 Delivery O2 Flow Rate FiO2 10/20/16 16:14 36.7 83 20 150/73 97 Room Air 10/20/16 16:00 Room Air Physical Exam: General-awake; alert; NAD Eyes-EOMI; no scleral icterus Neck-no stridor; trachea midline Lungs-CTA bilaterally; no wheezes/crackles Heart-irregularly irregular Abdomen-soft; NTND; nBS Extremities-large bruise/hematoma to right posterior buttock/thigh Neuro-no focal deficits Laboratory Results: Last 24 Hours Test 10/20/16 08:15 10/20/16 16:44 White Blood Count 6.34 K/uL Red Blood Count 3.48 M/uL Hemoglobin 8.9 g/dL Hematocrit 27.0 % Mean Corpuscular Volume 77.6 fL Mean Corpuscular Hemoglobin 25.6 pg Mean Corpuscular Hemoglobin Concent 33.0 g/dl RDW Standard Deviation 66.3 fL RDW Coefficient of Variation 23.8 % Platelet Count 288 K/uL Mean Platelet Volume 8.3 fL Nucleated RBC Absolute Count (auto) 0.05 K/uL Nucleated Red Blood Cells % 0.7 % Prothrombin Time 14.6 SECONDS Prothromb Time International Ratio 1.3 Sodium Level 141 mmol/L Potassium Level 3.8 mmol/L Chloride Level 108 mmol/L Carbon Dioxide Level 26 mmol/L Anion Gap 7.0 mmol/L Blood Urea Nitrogen 21 mg/dl Creatinine 0.94 mg/dl Est Creatinine Clear Calc Drug Dose 39.0 ml/min Estimated GFR () 62.8 Estimated GFR (Non- 54.2 BUN/Creatinine Ratio 22.4 Random Glucose 86 mg/dl Calcium Level 7.9 mg/dl Magnesium Level 2.2 mg/dl Bedside Glucose 129 mg/dl Assessment & Plan Coumadin therapy related right hip/gluteal hematomas causing severe acute blood loss anemia treated with Vitamin K and PRBC's. ACUTE BLOOD LOSS ANEMIA - Hgb was 4.5 on admission - 2/2 supra-therapeutic INR and traumatic RLE hematoma - transfused 4 units PRBC's - CT a/p with hematomas in region of right hip and gluteal musculature; hyperdense foci in right renal sinus (cyst vs mass vs hemorrhage) - renal CT pending COAGULOPATHY - INR > 8 on admission - Coumadin discontinued - patient given PO vitamin K and IV vitamin K with reversal GALA - due to acute blood loss anemia - received IVF's - transfused PRBC's - resolved CHRONIC AFIB - cont beta meghan - Coumadin discontinued given fall risk, and anemia requiring transfusion MILD ELEVATION OF TROPONIN : - likely demand in the setting of anemia - downtrended - TTE with pEF and no wall motion abnormalities FULL CODE DVT PROPHYLAXIS scd and teds avoid anticoagulation due to anemia DISPOSITION : PT/OT evaluations - rehab upon discharge program services assistant consulted Consultants: Cardiology Procedures: CT a/p 1. Suspected hematomas in the region of the right hip and gluteal musculature 2. No evidence of bowel obstruction. No evidence of free air 3. Normal appendix. Diverticulosis. No evidence of acute diverticulitis 4. Cholelithiasis. Distended gallbladder 5. Hyperdense foci within the superior aspect of the right renal sinus. Diagnostic considerations include a hyperdense cyst, renal pelvic mass, or hemorrhage within a dilated upper pole collecting system. A dedicated renal CT scan would be of benefit in follow-up 6. Small bilateral pleural effusions TTE * The left ventricle is normal in size. * There is moderate concentric left ventricular hypertrophy. * The left ventricular wall motion is normal. * Left ventricular systolic function is normal. * Ejection Fraction = 50-55%. * The left atrium is severely dilated. * Aortic valve sclerosis moderate, without significant aortic valvular stenosis. * There is moderate mitral regurgitation. * There is mild tricuspid regurgitation. * Right ventricular systolic pressure is elevated at 40-50mmHg. RLE venous duplex No evidence of right lower extremity DVT. CT head No acute intracranial findings Current Inpatient Medications: Current Inpatient Medications Medications (Trade) Dose Ordered Sig/Brennon Route Start Time Stop Time Status Last Admin Dose Admin Ondansetron HCl (Zofran Inj) 4 mg Q6H PRN IV 10/18/16 03:30 11/17/16 03:29 Nitroglycerin (Nitrostat Tab) 0.4 mg UD PRN SL 10/18/16 03:30 11/17/16 03:29 Metoprolol Succinate (Toprol Xl Tab) 12.5 mg DAILY PO 10/18/16 09:00 11/17/16 08:59 10/20/16 07:50 12.5 MG
[2016-10-20] MEDS ORDERED: OPTIRAY 320 IV PRN (20:45)
[2016-10-20 23:19] VITALS: BP 126/70; PULSE 82; TEMP 36.6; O2SAT 97
[2016-10-21 07:47] VITALS: BP 159/87; PULSE 87; TEMP 36.6; O2SAT 97
[2016-10-21] MEDS: METOPROLOL SUCC 25MG EXT REL TAB PO SCH (07:54)
[2016-10-21 08:03] LABS: HEMATOCRIT 26.9 % (37-47); MEAN CORPUSCULAR HEMOGLOBIN 25.5 pg (25-34); MEAN CORPUSCULAR HGB CONC 32.7 g/dl (32-36); MEAN PLATELET VOLUME 8.4 fL (7.4-10.4); PLATELET COUNT 290 K/uL (130-400); RED BLOOD COUNT 3.45 M/uL (4.2-5.4); WHITE BLOOD COUNT 6.32 K/uL (4.8-10.8)
[2016-10-21 08:10] LABS: INR 1.6 (0.9-1.1)
[2016-10-21 08:33] LABS: BUN/CREATININE RATIO 16.9 (10-20); CALCIUM 7.8 mg/dl (8.5-10.1); CREATININE 0.94 mg/dl (0.60-1.20); MAGNESIUM 2.2 mg/dl (1.8-2.4)
--- NOTE | 2016-10-21 09:35 | Clinical Documentation Query ---
CLINICAL DOCUMENTATION QUERY 86-y/o female who presents with symptomatic anemia 2/2 large right hip/gluteal hematomas with supra therapeutic INR of >8.0 s/p fall. In your clinical opinion is this patient being managed for: ( X ) Coumadin therapy related right hip/gluteal hematomas causing severe acute blood loss anemia treated with Vitamin K and PRBC's. ( ) Other explanation of clinical findings (Please Explain) ( ) Unable to determine (Please Define) ( ) Need to Discuss ( ) Not Agree The medical record reflects the following clinical findings, treatment, and risk factors. Clinical Indicators: INR >8.0, Hgb 4.5, Hct 13.9, SOB, lethargy, tachycardia 94, and hypotension 98/51. Treatment: 4 units of PRBC's, Vitamin K, Coumadin being held Risk Factors: Warfarin therapy and fall Please clarify and document your clinical opinion in the progress notes and discharge summary. Terms such as "probable", "suspected", "likely", "questionable", "possible", or "still to be ruled out" are acceptable. IF IN AGREEMENT, YOU MUST DOCUMENT ABOVE DIAGNOSTIC STATEMENT IN DAILY PROGRESS NOTES AND DISCHARGE SUMMARY. This document is not part of the patient's record. Thank You, Klever Ariza, RN [phone]
--- NOTE | 2016-10-21 14:48 | Cardiology Follow-Up ---
Subjective General Date of Service: Oct 21, 2016. Chief Complaint: anemia Pt evaluation today including: conversation w/ family, physical exam, chart review, lab review, review of studies, review of inpatient medication list History of Present Illness Patient sleeping soundly. No ROS performed. Patient does not speak chinese. Spoke with daughter. Progressing well with PT. Going to rehab. No complaints this AM. Allergies Coded Allergies: No Known Allergies (Verified , 10/18/16) Social History Smoking Status: Never Smoker Hx Tobacco Use In Past Year?: No Hx Alcohol Use - Type And Amou: No Hx Substance Use - Type And Am: No Problem List Medical Problems: (1) Severe anemia Status: Acute (2) Supratherapeutic INR Status: Acute Review of Systems Respiratory: + see HPI Cardiac: + see HPI Physical Exam Vital Signs Last Vital Signs Documentation Date Time Temp Pulse Resp B/P Pulse Ox O2 Delivery O2 Flow Rate FiO2 10/21/16 08:00 Room Air 10/21/16 07:47 36.6 87 18 159/87 97 Physical Exam Constitutional: General Apperance: heathly-appearing Level of Distress: NAD Head: normocephalic Lungs: Respiratory effort: no dyspnea, good air movement Auscultation: breath sounds normal (anteriorly) Cardiovascular: Heart Auscultation: no murmurs, no rubs, irregular rate rhythm Extremities: no cyanosis, no edema Assessment and Plan Assessment and Plan ASSESSMENT: 1. Acute blood loss anemia -hbg stable this AM 2. Chronic atrial fibrillation, rate controlled 3. Mildly elevated roponin in setting of profound anemia and GALA -no wall motion abnormalities on echo 4. GALA - improved PLAN: Monitor H&H Patient to benefit from rehab stay. No Coumadin due to significant anemia and fall risk. Risks > benefits of anticoagulation therapy was discussed in detail with the daughter today. Case discussed with Dr. Jade. Agree with above, ongoing use of anticoagulation risks greater than benefits. Acute on chronic anemia, profound as cause for admission. Eagle Jade MD Laboratory Results Last 24 Hours Test 10/20/16 16:44 10/21/16 07:05 Bedside Glucose 129 mg/dl White Blood Count 6.32 K/uL Red Blood Count 3.45 M/uL Hemoglobin 8.8 g/dL Hematocrit 26.9 % Mean Corpuscular Volume 78.0 fL Mean Corpuscular Hemoglobin 25.5 pg Mean Corpuscular Hemoglobin Concent 32.7 g/dl RDW Standard Deviation 67.0 fL RDW Coefficient of Variation 24.3 % Platelet Count 290 K/uL Mean Platelet Volume 8.4 fL Nucleated RBC Absolute Count (auto) 0.02 K/uL Nucleated Red Blood Cells % 0.4 % Prothrombin Time 18.0 SECONDS Prothromb Time International Ratio 1.6 Sodium Level 141 mmol/L Potassium Level 4.0 mmol/L Chloride Level 110 mmol/L Carbon Dioxide Level 25 mmol/L Anion Gap 6.0 mmol/L Blood Urea Nitrogen 16 mg/dl Creatinine 0.94 mg/dl Est Creatinine Clear Calc Drug Dose 39.0 ml/min Estimated GFR () 62.8 Estimated GFR (Non- 54.2 BUN/Creatinine Ratio 16.9 Random Glucose 77 mg/dl Calcium Level 7.8 mg/dl Magnesium Level 2.2 mg/dl
[2016-10-21 15:13] VITALS: BP 137/70; PULSE 78; TEMP 36.5; O2SAT 97
--- NOTE | 2016-10-21 17:55 | DIAGNOSTIC IMAGING REPORT ---
ABDOMINAL CT, RENAL PROTOCOL HISTORY: Abnormal CT. f/u previous ct finding in kidney TECHNIQUE: Multiaxial CT images of the abdomen were performed on these images contrast about the kidneys. Delayed and images are also obtained. Noncontrast imaging was not performed due to the recent noncontrast study on 10/18/2016. COMPARISON STUDY: Abdomen and pelvis CT 10/18/2016. FINDINGS: There are few scattered subcentimeter hypodense foci seen within the kidneys. Technically, these are too small to characterize but favor cysts. Dominant hypodense lesion is seen within the lower pole the left kidney and measures 7 mm. A 6 mm fat-containing lesion within the upper pole the right kidney consistent with an angiomyolipoma. No hydronephrosis. Mild urothelial thickening within the proximal right ureter. No enhancing left renal masses. There are 2 similar-appearing hyperdense lesions within the upper pole of the renal sinus of the right kidney. These measure 2.4 and 0.9 cm. These do not demonstrate significant enhancement and are consistent with hyperdense peripelvic cyst. There is also a a 1.3 cm hyperdense lesion within the interpolar region of the right kidney which does not demonstrate significant enhancement. Therefore, this is consistent with a hyperdense cyst. There are no definite enhancing renal masses identified. The heart is enlarged. There is a small right and trace left pleural effusion. The liver, spleen, adrenal glands, and pancreas are unremarkable. The gallbladder is mildly distended and contains a 3.3 cm stone. Question of trace pericholecystic inflammatory change versus edema. Colonic diverticulosis. The visualized loops of bowel show no wall thickening or obstruction. IMPRESSION: 1. No solid enhancing renal masses. 2. Right renal hyperdense lesions consistent with hyperdense cysts at described above. 3. 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 4. Mild urothelial thickening within the proximal right ureter. This could be due to mild infectious process. Recommend correlation with urinalysis. 5. Cardiomegaly and a small right and trace left pleural effusion. 6. Cholelithiasis. The gallbladder is mildly distended, however, this is slightly improved. There may be mild pericholecystic inflammatory change versus edema. Clinical correlation recommended to exclude developing acute cholecystitis. Electronically signed by: Caleb Lynn M.D. 10/21/2016 5:52 PM Dictated Date/Time: 10/21/2016 5:43 PM
[2016-10-21] MEDS ORDERED: TRAMADOL HCL 50 MG TAB PO PRN (18:15)
--- NOTE | 2016-10-21 19:08 | Progress Note ---
Subjective Date of Service: Oct 21, 2016. Subjective Pt evaluation today including: conversation w/ patient, conversation w/ family , physical exam, lab review, review of studies, review of inpatient medication list Saw/examined the patient in room 461 Doing well Some pain at the posterior part of right knee Good PO intake, no other issues Problem List Medical Problems: (1) Severe anemia Status: Acute (2) Supratherapeutic INR Status: Acute Review of Systems Constitutional: No chills, No fever Respiratory: No shortness of breath Cardiac: No chest pain Musculoskeletal: + joint pain, + see HPI Heme: + abnormal bleeding/bruising Medications Current Inpatient Medications Medications (Trade) Dose Ordered Sig/Brennon Route Start Time Stop Time Status Last Admin Dose Admin Ondansetron HCl (Zofran Inj) 4 mg Q6H PRN IV 10/18/16 03:30 11/17/16 03:29 Nitroglycerin (Nitrostat Tab) 0.4 mg UD PRN SL 10/18/16 03:30 11/17/16 03:29 Metoprolol Succinate (Toprol Xl Tab) 12.5 mg DAILY PO 10/18/16 09:00 11/17/16 08:59 10/21/16 07:54 12.5 MG Ioversol (Optiray 320) 100 ml UD PRN IV 10/20/16 20:45 10/24/16 20:44 Tramadol HCl (Ultram Tab) 50 mg Q4H PRN PO 10/21/16 18:15 11/20/16 18:14 Objective Vital Signs Date Time Temp Pulse Resp B/P Pulse Ox O2 Delivery O2 Flow Rate FiO2 10/21/16 16:00 Room Air 10/21/16 15:13 36.5 78 18 137/70 97 Room Air 10/21/16 08:00 Room Air 10/21/16 07:47 36.6 87 18 159/87 97 Room Air 10/21/16 00:00 Room Air 10/20/16 23:19 36.6 82 18 126/70 97 Room Air 10/20/16 20:00 Room Air Physical Exam General Appearance: no apparent distress Respiratory/Chest: lungs clear, normal breath sounds, no respiratory distress, no accessory muscle use Cardiovascular: regular rate, rhythm, no edema, no murmur Extremities: + pertinent finding (significant hematoma posterior knee and leg; pain to palpation, soft hematoma) Laboratory Results Last 24 Hours Test 10/21/16 07:05 White Blood Count 6.32 K/uL Red Blood Count 3.45 M/uL Hemoglobin 8.8 g/dL Hematocrit 26.9 % Mean Corpuscular Volume 78.0 fL Mean Corpuscular Hemoglobin 25.5 pg Mean Corpuscular Hemoglobin Concent 32.7 g/dl RDW Standard Deviation 67.0 fL RDW Coefficient of Variation 24.3 % Platelet Count 290 K/uL Mean Platelet Volume 8.4 fL Nucleated RBC Absolute Count (auto) 0.02 K/uL Nucleated Red Blood Cells % 0.4 % Prothrombin Time 18.0 SECONDS Prothromb Time International Ratio 1.6 Sodium Level 141 mmol/L Potassium Level 4.0 mmol/L Chloride Level 110 mmol/L Carbon Dioxide Level 25 mmol/L Anion Gap 6.0 mmol/L Blood Urea Nitrogen 16 mg/dl Creatinine 0.94 mg/dl Est Creatinine Clear Calc Drug Dose 39.0 ml/min Estimated GFR () 62.8 Estimated GFR (Non- 54.2 BUN/Creatinine Ratio 16.9 Random Glucose 77 mg/dl Calcium Level 7.8 mg/dl Magnesium Level 2.2 mg/dl Assessment and Plan Coumadin therapy related right hip/gluteal hematomas causing severe acute blood loss anemia treated with Vitamin K and PRBC's. ACUTE BLOOD LOSS ANEMIA 10/21 Hgb stable today s/p 4 units PRBCs no SOB or chest pain, no other symptoms stopping Coumadin PT/OT d/c to rehab - Hgb was 4.5 on admission - 2/2 supra-therapeutic INR and traumatic RLE hematoma - transfused 4 units PRBC's - CT a/p with hematomas in region of right hip and gluteal musculature; hyperdense foci in right renal sinus (cyst vs mass vs hemorrhage) - renal CT pending COAGULOPATHY - INR > 8 on admission - Coumadin discontinued - patient given PO vitamin K and IV vitamin K with reversal GALA - due to acute blood loss anemia - received IVF's - transfused PRBC's - resolved CHRONIC AFIB - cont beta meghan - Coumadin discontinued given fall risk, and anemia requiring transfusion MILD ELEVATION OF TROPONIN : - likely demand in the setting of anemia - downtrended - TTE with pEF and no wall motion abnormalities FULL CODE DVT PROPHYLAXIS scd and teds avoid anticoagulation due to anemia DISPOSITION : PT/OT evaluations - rehab upon discharge technical services librarian consulted
[2016-10-22 00:05] VITALS: BP 156/53; PULSE 99; TEMP 36.8; O2SAT 98
[2016-10-22 07:03] VITALS: BP 141/78; PULSE 76; TEMP 36.5; O2SAT 98
[2016-10-22 07:35] LABS: HEMATOCRIT 27.8 % (37-47); MEAN CELL VOLUME 79.9 fL (80-100); MEAN CORPUSCULAR HEMOGLOBIN 25.6 pg (25-34); MEAN PLATELET VOLUME 8.2 fL (7.4-10.4); PLATELET COUNT 312 K/uL (130-400); RED BLOOD COUNT 3.48 M/uL (4.2-5.4); WHITE BLOOD COUNT 6.48 K/uL (4.8-10.8)
[2016-10-22 07:47] LABS: INR 1.5 (0.9-1.1); PROTHROMBIN TIME (PATIENT) 16.8 SECONDS (9.0-12.0)
[2016-10-22 07:49] LABS: CALCIUM 7.8 mg/dl (8.5-10.1); CREATININE 0.83 mg/dl (0.60-1.20); POTASSIUM 3.9 mmol/L (3.5-5.1)
[2016-10-22] MEDS: METOPROLOL SUCC 25MG EXT REL TAB PO SCH (08:13)
[2016-10-22 10:44] VITALS: BP 141/78; PULSE 76; TEMP 36.5; O2SAT 98
--- NOTE | 2016-10-22 12:57 | Progress Note ---
Subjective Date of Service: Oct 22, 2016. Subjective Pt evaluation today including: conversation w/ patient, physical exam, lab review, review of studies, review of inpatient medication list Saw/examined the patient in room 461 She's doing okay, no pain; no other new issues to note Problem List Medical Problems: (1) Severe anemia Status: Acute (2) Supratherapeutic INR Status: Acute Review of Systems Musculoskeletal: + muscle pain, + swelling, No joint pain Medications Current Inpatient Medications Medications (Trade) Dose Ordered Sig/Brennon Route Start Time Stop Time Status Last Admin Dose Admin Ondansetron HCl (Zofran Inj) 4 mg Q6H PRN IV 10/18/16 03:30 11/17/16 03:29 Nitroglycerin (Nitrostat Tab) 0.4 mg UD PRN SL 10/18/16 03:30 11/17/16 03:29 Metoprolol Succinate (Toprol Xl Tab) 12.5 mg DAILY PO 10/18/16 09:00 11/17/16 08:59 10/22/16 08:13 12.5 MG Ioversol (Optiray 320) 100 ml UD PRN IV 10/20/16 20:45 10/24/16 20:44 Tramadol HCl (Ultram Tab) 50 mg Q4H PRN PO 10/21/16 18:15 11/20/16 18:14 Objective Vital Signs Date Time Temp Pulse Resp B/P Pulse Ox O2 Delivery O2 Flow Rate FiO2 10/22/16 10:44 36.5 76 20 98 Room Air 10/22/16 08:00 Room Air 10/22/16 07:03 36.5 76 20 141/78 98 Room Air 10/22/16 00:05 36.8 99 20 156/53 98 Room Air 10/22/16 00:00 Room Air 10/21/16 20:00 Room Air 10/21/16 16:00 Room Air 10/21/16 15:13 36.5 78 18 137/70 97 Room Air Physical Exam General Appearance: no apparent distress Extremities: + pertinent finding (bruising/hematoma posterior RLE; improving) Laboratory Results Last 24 Hours Test 10/22/16 07:15 White Blood Count 6.48 K/uL Red Blood Count 3.48 M/uL Hemoglobin 8.9 g/dL Hematocrit 27.8 % Mean Corpuscular Volume 79.9 fL Mean Corpuscular Hemoglobin 25.6 pg Mean Corpuscular Hemoglobin Concent 32.0 g/dl RDW Standard Deviation 71.2 fL RDW Coefficient of Variation 25.1 % Platelet Count 312 K/uL Mean Platelet Volume 8.2 fL Prothrombin Time 16.8 SECONDS Prothromb Time International Ratio 1.5 Sodium Level 141 mmol/L Potassium Level 3.9 mmol/L Chloride Level 109 mmol/L Carbon Dioxide Level 26 mmol/L Anion Gap 6.0 mmol/L Blood Urea Nitrogen 13 mg/dl Creatinine 0.83 mg/dl Est Creatinine Clear Calc Drug Dose 44.2 ml/min Estimated GFR () 73.0 Estimated GFR (Non- 63.0 BUN/Creatinine Ratio 16.0 Random Glucose 78 mg/dl Calcium Level 7.8 mg/dl Magnesium Level 2.0 mg/dl Assessment and Plan Coumadin therapy related right hip/gluteal hematomas causing severe acute blood loss anemia treated with Vitamin K and PRBC's. ACUTE BLOOD LOSS ANEMIA 10/22 plan is to d/c to rehab today no more Coumadin Hgb stable 10/21 Hgb stable today s/p 4 units PRBCs no SOB or chest pain, no other symptoms stopping Coumadin PT/OT d/c to rehab - Hgb was 4.5 on admission - 2/2 supra-therapeutic INR and traumatic RLE hematoma - transfused 4 units PRBC's - CT a/p with hematomas in region of right hip and gluteal musculature; hyperdense foci in right renal sinus (cyst vs mass vs hemorrhage) - renal CT pending COAGULOPATHY - INR > 8 on admission - Coumadin discontinued - patient given PO vitamin K and IV vitamin K with reversal GALA - due to acute blood loss anemia - received IVF's - transfused PRBC's - resolved CHRONIC AFIB - cont beta meghan - Coumadin discontinued given fall risk, and anemia requiring transfusion MILD ELEVATION OF TROPONIN : - likely demand in the setting of anemia - downtrended - TTE with pEF and no wall motion abnormalities FULL CODE DVT PROPHYLAXIS scd and teds avoid anticoagulation due to anemia DISPOSITION : PT/OT evaluations - rehab upon discharge web services professional consulted Discharge planning: rehab hospital
--- NOTE | 2016-10-22 13:00 | Discharge Instructions ---
Discharge Instructions Date of Service Oct 22, 2016. Admission Reason for Admission: Anemia Discharge Discharge Diagnosis / Problem: Hematoma, Significant Anemia, Coagulopathy Discharge Goals Goal(s): Decrease discomfort, Improve function, Diagnostic testing, Therapeutic intervention Activity Recommendations Activity Limitations: resume your previous activity . Instructions / Follow-Up Instructions / Follow-Up Please follow-up with PCP after stay at [facility] Should have CBC (blood work) rechecked every 3 days to assure H/H is stable No more Coumadin Current Hospital Diet Patient's current hospital diet: Regular Diet Discharge Diet Recommended Diet: Regular Diet Pending Studies Studies pending at discharge: no Laboratory Results Lipid Panel Test 10/18/16 08:27 Range/Units Triglycerides Level 91 0-150 mg/dl Cholesterol Level 81 0-200 mg/dl HDL Cholesterol 28 mg/dl Cholesterol/HDL Ratio 2.9 LDL Cholesterol, Calculated 35 mg/dl Medical Emergencies . Who to Call and When: Medical Emergencies: If at any time you feel your situation is an emergency, please call 911 immediately. . Non-Emergent Contact Non-Emergency issues call your: Primary Care Provider . . "Provider Documentation" section prepared by Carol Bryant. VTE Core Measure Inpt VTE Proph given/why not?: Danae Wolfe, SCD's
--- NOTE | 2016-10-22 13:02 | Discharge Summary ---
Discharge Summary Date of Service Oct 22, 2016. Discharge Summary Admission Date: Oct 18, 2016 at 03:18 Discharge Date: Oct 22, 2016 [facility] Principal Diagnosis: Anemia Hematoma Coagulopathy; Supratherapeutic INR Atrial Fibrillation Procedures: CT a/p 1. Suspected hematomas in the region of the right hip and gluteal musculature 2. No evidence of bowel obstruction. No evidence of free air 3. Normal appendix. Diverticulosis. No evidence of acute diverticulitis 4. Cholelithiasis. Distended gallbladder 5. Hyperdense foci within the superior aspect of the right renal sinus. Diagnostic considerations include a hyperdense cyst, renal pelvic mass, or hemorrhage within a dilated upper pole collecting system. A dedicated renal CT scan would be of benefit in follow-up 6. Small bilateral pleural effusions TTE * The left ventricle is normal in size. * There is moderate concentric left ventricular hypertrophy. * The left ventricular wall motion is normal. * Left ventricular systolic function is normal. * Ejection Fraction = 50-55%. * The left atrium is severely dilated. * Aortic valve sclerosis moderate, without significant aortic valvular stenosis. * There is moderate mitral regurgitation. * There is mild tricuspid regurgitation. * Right ventricular systolic pressure is elevated at 40-50mmHg. RLE venous duplex No evidence of right lower extremity DVT. CT head No acute intracranial findings Consultations: Cardiology Admission Information HPI (per Admitting provider): 86 yo F Greek speaking hx of chronic Afib on Coumadin brought to ED by daughter as pt was very weak , having SOB with minimum activity , palpitation , chest heaviness sustained fall at home in the ED HB found to be ~4 , with GALA INR elevated > 8 history obtained form Daughter -as pt does not speak Maori per daughter -pt was more confused , weak in past few days , fell day before yesterday while trying to go to bathroom hit her rt leg to side table complaining of pain on rt thigh area pt's INR has been elevated , was seen by [facility] , asked to hold Coumadin dose no report of dark stool per daughter last night -as pt was trying to go to bathroom , could not bear wt on rt leg due to severe pain has complaining of chest heaviness/palpitation , dizzy spell CT head w/out contrast was negative for intracranial hge pt is ordered 2 units of PRBC to be transfused in ED will need serial H&H to be checked to keep Hb > 8 ordered for stool heme occult Physical Exam (per Admitting): General Appearance: no apparent distress Head: normocephalic Eyes: sclerae normal Neck: no JVD Respiratory/Chest: chest non-tender, lungs clear, normal breath sounds, no respiratory distress Cardiovascular: + irregularly irregular Abdomen/GI: non tender, soft Extremities/Musculoskelatal: + pertinent finding (pain and tendereness / swelling on rt inner thigh , no bruise or ecchymosis noted ) Neurologic/Psych: + pertinent finding (confusion ) Hospital Course Coumadin therapy related right hip/gluteal hematomas causing severe acute blood loss anemia treated with Vitamin K and PRBC's. ACUTE BLOOD LOSS ANEMIA 10/22 plan is to d/c to rehab today no more Coumadin Hgb stable 10/21 Hgb stable today s/p 4 units PRBCs no SOB or chest pain, no other symptoms stopping Coumadin PT/OT d/c to rehab - Hgb was 4.5 on admission - 2/2 supra-therapeutic INR and traumatic RLE hematoma - transfused 4 units PRBC's - CT a/p with hematomas in region of right hip and gluteal musculature; hyperdense foci in right renal sinus (cyst vs mass vs hemorrhage) - renal CT pending COAGULOPATHY - INR > 8 on admission - Coumadin discontinued - patient given PO vitamin K and IV vitamin K with reversal GALA - due to acute blood loss anemia - received IVF's - transfused PRBC's - resolved CHRONIC AFIB - cont beta meghan - Coumadin discontinued given fall risk, and anemia requiring transfusion MILD ELEVATION OF TROPONIN : - likely demand in the setting of anemia - downtrended - TTE with pEF and no wall motion abnormalities FULL CODE DVT PROPHYLAXIS scd and teds avoid anticoagulation due to anemia DISPOSITION : PT/OT evaluations - rehab upon discharge creative services producer consulted Discharge planning: rehab hospital Total time spent on discharge = 25 minutes This includes examination of the patient, discharge planning, medication reconciliation, and communication with other providers. Discharge Instructions Please follow-up with PCP after stay at [facility] Should have CBC (blood work) rechecked every 3 days to assure H/H is stable No more Coumadin
== END 2016-10-22 15:04 | DRG 813 ==
LOC: ENRESERVDT → ENRESERVTM → EDBD 00:36 → C.EDB 00:37 → C.MSICU 03:18 → C.2T 18:15 → C.MS4W 10-19 13:50 → CMPBEDREQ 10-19 14:01
PROVIDERS: ADMIT Hospitalist; ATTEND Family Medicine
DX: D68.32 Hemorrhagic disorder due to extrinsic circulating anticoagulants (principal); D62 Acute posthemorrhagic anemia; N17.9 Acute kidney failure, unspecified; J90 Pleural effusion, not elsewhere classified; I24.8 Other forms of acute ischemic heart disease; D68.9 Coagulation defect, unspecified; I10 Essential (primary) hypertension; I48.2 Chronic atrial fibrillation; K57.90 Diverticulosis of intestine, part unspecified, without perforation or abscess without bleeding; S70.01XA Contusion of right hip, initial encounter; I08.1 Rheumatic disorders of both mitral and tricuspid valves; W19.XXXA Unspecified fall, initial encounter; Z79.01 Long term (current) use of anticoagulants; T45.515A Adverse effect of anticoagulants, initial encounter; Y92.9 Unspecified place or not applicable

== ENCOUNTER → 2016-10-23 | Outpatient (CLI) | payer OTHER ==
[~2016-10-23] MED LIST changes: -ACET-1311 PO; -CALCTAB65 PO; -FSMD/70 PO; -HYDR12.56 PO; -LISI10TA PO; +LSN20 PO; -MELA3TAB PO; +METO25TA3 PO; -METO25TA56 PO; -POTA10CA28 PO; +POTA1CAP53 PO; -TRAM-10 PO; -WARF5TAB90 PO
[2016-10-23 09:55] LABS: BASO % 0.6 %; BASO ABS # 0.04 K/uL (0-0.2); HEMATOCRIT 29.3 % (37-47); IG% 0.5 %; LYMPH % 9.3 %; LYMPH ABS # 0.58 K/uL (1.2-3.4); MEAN CELL VOLUME 79.8 fL (80-100); MEAN CORPUSCULAR HEMOGLOBIN 25.9 pg (25-34); MEAN CORPUSCULAR HGB CONC 32.4 g/dl (32-36); MEAN PLATELET VOLUME 8.4 fL (7.4-10.4); NEUT % 73.6 %; PLATELET COUNT 309 K/uL (130-400); RED BLOOD COUNT 3.67 M/uL (4.2-5.4); WHITE BLOOD COUNT 6.26 K/uL (4.8-10.8)
[2016-10-23 09:59] LABS: INR 1.6 (0.9-1.1); PROTHROMBIN TIME (PATIENT) 16.9 SECONDS (9.0-12.0)
[2016-10-23 10:27] LABS: ACANTHOCYTES 1+; COMPLETE YES; ECHINOCYTES 2+; HYPERSEGMENTED POLYS 2+; POLYCHROMASIA 1+
[2016-10-23 10:53] LABS: ALT/SGPT 20 U/L (12-78); AST/SGOT 21 U/L (15-37); BLOOD UREA NITROGEN 13 mg/dl (7-18); BUN/CREATININE RATIO 17.7 (10-20); CALCIUM 8.3 mg/dl (8.5-10.1); CARBON DIOXIDE 24 mmol/L (21-32); CHLORIDE 109 mmol/L (98-107); CREATININE 0.72 mg/dl (0.60-1.20); GLUCOSE 69 mg/dl (70-99); POTASSIUM 3.8 mmol/L (3.5-5.1); SODIUM 141 mmol/L (136-145)
[2016-10-23 10:55] LABS: ALB/GLOB RATIO 0.7 (0.9-2); ALKALINE PHOSPHATASE 79 U/L (45-117)
== END ==
LOC: C.LABUPNIT 09:22
PROVIDERS: ATTEND Family Medicine
DX: E64.9 Sequelae of unspecified nutritional deficiency (principal)